=== PATIENT | male | born 1995 | race African-American/Black ===

== ENCOUNTER 2020-06-30 14:14 | Emergency (ER) | payer OTHER ==
[~2020-06-30] VITALS: Ht 167.6 cm; Wt 63.5 kg
[2020-06-30] MEDS ORDERED: LIDOCAINE VISCOUS 2% UD 15 ML UDC ONE (14:50)
[2020-06-30] MEDS ORDERED: MAG HYDROX/AL HYDROX/SIMETH 30 ML UDC ONE (14:50)
[2020-06-30] MEDS ORDERED: PANTOPRAZOLE 40 MG VIAL ONE (14:51)
[2020-06-30] MEDS ORDERED: ONDANSETRON HCL/PF 4 MG/2 ML VIAL ONE (14:51)
[2020-06-30] MEDS ORDERED: MAG HYDROX/AL HYDROX/SIMETH 30 ML UDC PO ONE (15:00)
[2020-06-30] MEDS ORDERED: LIDOCAINE VISCOUS 2% UD 15 ML UDC MM ONE (15:00)
[2020-06-30] MEDS ORDERED: PANTOPRAZOLE 40 MG VIAL IV ONE (15:00)
[2020-06-30] MEDS ORDERED: IV NS 0.9% 1,000 ML BAG IV ONE (15:00)
[2020-06-30] MEDS ORDERED: ONDANSETRON HCL/PF 4 MG/2 ML VIAL IVP ONE (15:00)
--- NOTE | 2020-06-30 15:16 | NUR ---
EPIGASTRIC PAIN, VOMITING BLOOD SINCE THIS AM. ADMITS TO ETOH LAST NIGHT. PT AAOX3, VSS. RR EVEN & UNLABORED. PT SEEN & EVAL'D BY DR. GUTIERREZ. MEDICATED ORDERED, PT JB WELL. WILL CONT TO MONITOR.
[2020-06-30 15:24] LABS: BASOPHILS % (AUTO) 0.5 % (0.0-2.0); EOSINOPHILS % (AUTO) 0.1 % (0.0-6.0); HEMATOCRIT 47 % (39-51); HEMOGLOBIN 15.6 g/dL (13.5-17.5); LYMPHOCYTES # (AUTO) 0.6 /CMM (0.8-4.8); LYMPHOCYTES % (AUTO) 6.9 % (20.0-44.0); MEAN CORPUSCULAR HGB CONC 33 g/dl (31.0-36.0); MEAN CORPUSCULAR VOLUME 83 fL (80-96); MONOCYTES # (AUTO) 0.4 /CMM (0.1-1.30); MONOCYTES % (AUTO) 4.8 % (2.0-12.0); NEUTROPHILS # (AUTO) 7.4 /CMM (1.8-8.9); NEUTROPHILS % (AUTO) 87.7 % (43.0-81.0); PLATELET COUNT (AUTO) 210 /CMM (150-450); RED BLOOD CELL COUNT(AUTO) 5.68 MIL/uL (4.5-6.0); WHITE BLOOD COUNT (AUTO) 8.5 K/uL (4.3-11.0)
[2020-06-30 15:50] LABS: CALCIUM, SERUM 9.5 mg/dL (8.5-10.1); CREATININE 1.1 mg/dL (0.6-1.3); POTASSIUM 4.1 mmol/L (3.5-5.1)
[2020-06-30] MEDS ORDERED: IV NS 0.9% 250 ML IV ONE (15:53)
[2020-06-30] MEDS ORDERED: IOHEXOL-300 100 ML VIAL IV ONE (15:53)
[2020-06-30 15:56] LABS: ALBUMIN 4.3 g/dL (3.4-5.0); BILIRUBIN,DIRECT 0.1 mg/dL (0.0-0.2); BILIRUBIN,TOTAL 0.4 mg/dL (0.2-1.0); TOTAL PROTEIN, SERUM 7.7 g/dL (6.4-8.2)
--- NOTE | 2020-06-30 18:40 | NUR ---
Patient discharged to home in stable condition. Written and verbal after care instructions given. Patient verbalizes understanding of instruction. IV removed. Catheter intact and site benign. Pressure and 4x4 applied to site. No bleeding noted.
[2020-06-30 18:44] VITALS: BP 129/82
== END 2020-06-30 18:44 | disposition home or self-care (01) ==
LOC: ER 14:18
DX: K52.9 Noninfective gastroenteritis and colitis, unspecified (principal)
CPT/HCPCS: 36415; 74177; 80048; 80076; 83690; 85025; 85730; 96361; 96374; 96375; 99285; C9113; J2405; J7030; J7050; Q9967